=== PATIENT | female | born 1930 | race Caucasian/White ===

== ENCOUNTER 2019-07-26 08:01 | Inpatient (IN) ==
[2019-07-26] MEDS ORDERED: SODIUM CHLORIDE 0.9% 1,000 ML IV STA (08:32)
[2019-07-26 09:30] LABS: PT Patient Result 10.7 SECS (9.6-12.2); Partial Thromboplastin Time 26.1 SECS (20.8-36.0)
[2019-07-26 09:50] LABS: Albumin 3.3 G/DL (3.4-5.0); Bilirubin,Total 0.7 MG/DL (0.2-1.0); Calcium 9.2 MG/DL (8.5-10.1); Osmolality,Calculated 265.5 MOS/KG (273-304); Total Protein 7.7 G/DL (6.4-8.3)
[2019-07-26] MEDS ORDERED: methylPREDNISolone SOD SUC 125 MG/2 ML VIAL IV STA (10:00)
[2019-07-26 10:14] LABS: Apearance,Urine CLEAR (Clear); Bacteria,Urine Occasional /HPF (Few); Bilirubin,Urine Negative (Negative); Blood, Urine Negative (Negative); Glucose,Urine (UA) Negative (Negative); Ketones,Urine Negative (Negative); Mucus,Urine Occasional /LPF (Occasional); Nitrite,Urine Negative (Negative); Protein,Urine Negative; RBC,Urine 1 /HPF (0-4); Squamous Epithelial Cell,Urine Occasional /HPF (0-10); Urine Color Yellow (Yellow); Urine Urobilinogen < 2.0 EU/DL (0.2-1.0); WBC,Urine 1 /HPF (0-6)
[2019-07-26] MEDS ORDERED: guaiFENesin/DM ER 600-30 MG TABLET PO PRN (10:35)
[2019-07-26] MEDS ORDERED: ACETAMINOPHEN 325 MG TABLET PO PRN (10:35)
[2019-07-26] MEDS ORDERED: ONDANSETRON 4 MG/2 ML VIAL IV PRN (10:35)
[2019-07-26 11:24] LABS: Risk Ratio 2.83; Thyroid Stimulating Hormone 0.621 uIU/ml (0.358-3.74); VLDL CHOLESTEROL 23.4 MG/DL
[2019-07-26] MEDS: ENOXAPARIN 30 MG/0.3 ML SYRINGE SUBCUT SCH (12:30)
[2019-07-26] MEDS: SODIUM CHLORIDE 0.9% 1,000 ML IV SCH (12:31)
[2019-07-26] MEDS: NYSTATIN 500,000 UNIT/5 ML UDCUP SWISH/SWAL SCH ×3 (12:31→20:57)
[2019-07-26] MEDS: AZITHROMYCIN INJ 500 MG in SODIUM CHLORIDE 0.9% 250 ML IV SCH (12:32)
[2019-07-26 12:51] LABS: Basophils % 0.3 % (0.0-0.8); Hematocrit 30.2 VOL% (35.7-47.0); Hemoglobin 10.1 GM/DL (12.0-16.0); Immature Granulocytes % 0.4 %; Immature Granulocytes Absolute 0.05 #; Lymphocytes # 0.3 10*3/uL (1.4-4.0); Lymphocytes % 2.9 % (21.3-54.2); Mean Corpuscular HGB Conc 33.4 GM/DL (32-36); Mean Corpuscular Volume 94.1 FL (87-102); Mean Platelet Volume 8.4 FL (9.6-12.0); Monocytes % 4.6 % (1.7-12.7); Neutrophils % 91.8 % (38.7-73.9); Platelet Count 331 T/CUMM (130-400); Red Blood Count 3.21 MC/CUMM (3.8-5.5); Red Cell Distribution Width 12.7 % (9.3-17.3); White Blood Count 11.8 T/CUMM (4-12)
[2019-07-26 13:20] LABS: Anisocytosis 2+; Band Neutrophils 21 % (0-10); Lymphocytes 1 % (20-55); Platelet Estimate Normal; Poikilocytosis Slight; Segmented Neutrophils 76 % (50-85); Total Cells Counted 100
[2019-07-26] MEDS: ALBUTEROL/IPRATROPIUM 3 ML NEB RESP TX SCH ×2 (13:58→19:14)
[2019-07-26] MEDS: LACTOBACILLUS ACIDOPHILUS/BULGARICUS CAPLET PO SCH (16:46)
[2019-07-26] MEDS: MULTIVITAMIN (BEROCCA) TABLET PO SCH (16:46)
[2019-07-27] MEDS: ALBUTEROL/IPRATROPIUM 3 ML NEB RESP TX SCH ×4 (00:38→20:00)
[2019-07-27 05:31] LABS: Hematocrit 29.9 VOL% (35.7-47.0); Hemoglobin 9.9 GM/DL (12.0-16.0); Immature Granulocytes % 0.4 %; Immature Granulocytes Absolute 0.04 #; Lymphocytes # 0.3 10*3/uL (1.4-4.0); Lymphocytes % 3.1 % (21.3-54.2); Mean Corpuscular HGB Conc 33.1 GM/DL (32-36); Mean Corpuscular Volume 94.6 FL (87-102); Mean Platelet Volume 8.5 FL (9.6-12.0); Monocytes % 3.3 % (1.7-12.7); Neutrophils % 93.2 % (38.7-73.9); Platelet Count 295 T/CUMM (130-400); Red Blood Count 3.16 MC/CUMM (3.8-5.5); Red Cell Distribution Width 12.7 % (9.3-17.3); White Blood Count 9.7 T/CUMM (4-12)
[2019-07-27 05:58] LABS: Calcium 8.1 MG/DL (8.5-10.1); Osmolality,Calculated 271.1 MOS/KG (273-304)
[2019-07-27 06:10] LABS: Band Neutrophils 2 % (0-10); Lymphocytes 3 % (20-55); Segmented Neutrophils 94 % (50-85); Total Cells Counted 100
[2019-07-27 06:11] LABS: Anisocytosis 1+; Ovalocytes Few; Platelet Estimate Normal
[2019-07-27] MEDS: SODIUM CHLORIDE 0.9% 1,000 ML IV SCH (06:24)
[2019-07-27] MEDS ORDERED: POTASSIUM CHLORIDE RIDER 10 MEQ in PREMIX 1 EACH IV PRN (06:50)
[2019-07-27] MEDS ORDERED: POTASSIUM CHLORIDE INJ 50 MEQ in SODIUM CHLORIDE 0.9% 500 ML IV ONE (09:00)
[2019-07-27] MEDS: LACTOBACILLUS ACIDOPHILUS/BULGARICUS CAPLET PO SCH (09:15)
[2019-07-27] MEDS: PANTOPRAZOLE 40 MG TABLET PO SCH (09:15)
[2019-07-27] MEDS: MULTIVITAMIN (BEROCCA) TABLET PO SCH (09:16)
[2019-07-27] MEDS: AZITHROMYCIN INJ 500 MG in SODIUM CHLORIDE 0.9% 250 ML IV SCH (09:16)
[2019-07-27] MEDS: NYSTATIN 500,000 UNIT/5 ML UDCUP SWISH/SWAL SCH ×4 (09:16→20:47)
[2019-07-27] MEDS ORDERED: diphenhydrAMINE 25 MG/10 ML UDCUP PO PRN (09:49)
[2019-07-27] MEDS: ENOXAPARIN 30 MG/0.3 ML SYRINGE SUBCUT SCH (12:18)
[2019-07-27] MEDS: BENZONATATE 100 MG CAPSULE PO SCH ×2 (12:18→20:47)
[2019-07-27] MEDS: MEROPENEM 500 MG in SODIUM CHLORIDE 0.9% 100 ML IV SCH ×2 (12:18→18:12)
[2019-07-27] MEDS: METOPROLOL TARTRATE 25 MG TABLET PO SCH (20:47)
[2019-07-28] MEDS: ALBUTEROL/IPRATROPIUM 3 ML NEB RESP TX SCH ×4 (00:28→20:55)
[2019-07-28] MEDS: SODIUM CHLORIDE 0.9% 1,000 ML IV SCH ×2 (01:41→06:50)
[2019-07-28] MEDS: MEROPENEM 500 MG in SODIUM CHLORIDE 0.9% 100 ML IV SCH ×3 (02:46→18:02)
[2019-07-28 04:33] LABS: Basophils % 0.1 % (0.0-0.8); Eosinophils % 0.1 % (0.00-10.9); Hematocrit 28.6 VOL% (35.7-47.0); Hemoglobin 9.5 GM/DL (12.0-16.0); Immature Granulocytes % 1.4 %; Immature Granulocytes Absolute 0.22 #; Lymphocytes # 0.3 10*3/uL (1.4-4.0); Lymphocytes % 2.1 % (21.3-54.2); Mean Corpuscular HGB Conc 33.2 GM/DL (32-36); Mean Corpuscular Volume 94.1 FL (87-102); Mean Platelet Volume 8.4 FL (9.6-12.0); Monocytes % 7.6 % (1.7-12.7); Neutrophils % 88.7 % (38.7-73.9); Platelet Count 281 T/CUMM (130-400); Red Blood Count 3.04 MC/CUMM (3.8-5.5); White Blood Count 16.3 T/CUMM (4-12)
[2019-07-28 04:59] LABS: Calcium 7.7 MG/DL (8.5-10.1)
[2019-07-28 05:35] LABS: Lymphocytes 1 % (20-55); Ovalocytes Few; Platelet Estimate Normal; Segmented Neutrophils 95 % (50-85); Total Cells Counted 100
[2019-07-28 05:37] LABS: Polychromasia Slight
[2019-07-28 05:38] LABS: Stomatocytes Slight
[2019-07-28] MEDS: POTASSIUM CHLORIDE 20 MEQ TABLET PO PRN ×3 (06:36→13:18)
[2019-07-28] MEDS ORDERED: DILTIAZEM CD 180 MG CAPSULE PO ONE (08:12)
[2019-07-28] MEDS ORDERED: FUROSEMIDE 40 MG/4 ML VIAL IV ONE (08:13)
[2019-07-28] MEDS: LACTOBACILLUS ACIDOPHILUS/BULGARICUS CAPLET PO SCH (08:37)
[2019-07-28] MEDS: MULTIVITAMIN (BEROCCA) TABLET PO SCH (08:37)
[2019-07-28] MEDS: ATORVASTATIN 10 MG TABLET PO SCH (08:38)
[2019-07-28] MEDS: ASPIRIN EC 81 MG TABLET PO SCH (08:38)
[2019-07-28] MEDS: CHOLECALCIFEROL 1,000 UNIT TABLET PO SCH (08:38)
[2019-07-28] MEDS: POTASSIUM CHLORIDE 10 MEQ TABLET PO SCH (08:39)
[2019-07-28] MEDS: PANTOPRAZOLE 40 MG TABLET PO SCH (08:39)
[2019-07-28] MEDS: METOPROLOL TARTRATE 25 MG TABLET PO SCH ×2 (08:39→20:45)
[2019-07-28] MEDS: BENZONATATE 100 MG CAPSULE PO SCH ×2 (08:39→20:46)
[2019-07-28] MEDS: NYSTATIN 500,000 UNIT/5 ML UDCUP SWISH/SWAL SCH ×4 (08:40→20:45)
[2019-07-28] MEDS ORDERED: hydroCHLOROthiazide 12.5 MG CAPSULE PO SCH (09:00)
[2019-07-28] MEDS ORDERED: LOSARTAN 50 MG TABLET PO SCH (09:00)
[2019-07-28] MEDS ORDERED: DILTIAZEM CD 240 MG CAPSULE PO SCH ×2 (09:00→21:00)
[2019-07-28] MEDS: methylPREDNISolone SOD SUC 40 MG/1 ML VIAL IV SCH ×2 (11:30→20:47)
[2019-07-28] MEDS: ENOXAPARIN 30 MG/0.3 ML SYRINGE SUBCUT SCH (11:31)
[2019-07-28] MEDS: busPIRone 5 MG TABLET PO SCH ×2 (15:25→20:46)
[2019-07-29] MEDS: ALBUTEROL/IPRATROPIUM 3 ML NEB RESP TX SCH ×3 (01:41→14:15)
[2019-07-29] MEDS: MEROPENEM 500 MG in SODIUM CHLORIDE 0.9% 100 ML IV SCH (03:04)
[2019-07-29 05:19] LABS: Basophils % 0.1 % (0.0-0.8); Hematocrit 26.5 VOL% (35.7-47.0); Hemoglobin 8.7 GM/DL (12.0-16.0); Immature Granulocytes Absolute 0.19 #; Lymphocytes # 0.4 10*3/uL (1.4-4.0); Lymphocytes % 1.9 % (21.3-54.2); Mean Corpuscular HGB Conc 32.8 GM/DL (32-36); Mean Platelet Volume 8.8 FL (9.6-12.0); Monocytes % 3.8 % (1.7-12.7); Neutrophils % 93.2 % (38.7-73.9); Platelet Count 323 T/CUMM (130-400); Red Blood Count 2.79 MC/CUMM (3.8-5.5); Red Cell Distribution Width 13.1 % (9.3-17.3); White Blood Count 19.2 T/CUMM (4-12)
[2019-07-29] MEDS ORDERED: guaiFENesin/CODEINE 5 ML LIQUID PO PRN (05:19)
[2019-07-29] MEDS ORDERED: MORPHINE 4 MG/1 ML VIAL IV PRN (05:20)
[2019-07-29 05:39] LABS: Calcium 8.6 MG/DL (8.5-10.1); Osmolality,Calculated 275.5 MOS/KG (273-304)
[2019-07-29 06:28] LABS: Anisocytosis 2+; Hypochromasia 1+; Lymphocytes 3 % (20-55); Macrocytosis 1+; Microcytosis 1+; Ovalocytes 1+; Polychromasia 1+; Segmented Neutrophils 97 % (50-85); Total Cells Counted 100
[2019-07-29 06:29] LABS: Platelet Estimate Adequate
[2019-07-29] MEDS ORDERED: DILTIAZEM CD 240 MG CAPSULE PO SCH (09:00)
[2019-07-29] MEDS ORDERED: predniSONE 10 MG TABLET PO SCH (09:00)
[2019-07-29] MEDS: busPIRone 5 MG TABLET PO SCH (09:44)
[2019-07-29] MEDS: BENZONATATE 100 MG CAPSULE PO SCH (09:44)
[2019-07-29] MEDS: NYSTATIN 500,000 UNIT/5 ML UDCUP SWISH/SWAL SCH ×2 (09:47→14:15)
[2019-07-29] MEDS ORDERED: MEROPENEM 500 MG in SODIUM CHLORIDE 0.9% 100 ML IV SCH (11:00)
[2019-07-29] MEDS ORDERED: ENOXAPARIN 40 MG/0.4 ML SYRINGE SUBCUT SCH (12:00)
[2019-07-29] MEDS: CHOLECALCIFEROL 1,000 UNIT TABLET PO SCH (12:39)
[2019-07-29] MEDS: LACTOBACILLUS ACIDOPHILUS/BULGARICUS CAPLET PO SCH (12:39)
[2019-07-29] MEDS: ASPIRIN EC 81 MG TABLET PO SCH (12:39)
[2019-07-29] MEDS: PANTOPRAZOLE 40 MG TABLET PO SCH (12:39)
[2019-07-29] MEDS: METOPROLOL TARTRATE 25 MG TABLET PO SCH (12:39)
[2019-07-29] MEDS: ATORVASTATIN 10 MG TABLET PO SCH (12:39)
[2019-07-29] MEDS: MULTIVITAMIN (BEROCCA) TABLET PO SCH (12:39)
[2019-07-29] MEDS: POTASSIUM CHLORIDE 10 MEQ TABLET PO SCH (12:39)
[2019-07-29 14:13] VITALS: BP 98/59
[2019-07-30] MEDS ORDERED: AZITHROMYCIN 250 MG TABLET PO SCH (09:00)
== END 2019-07-29 11:46 | disposition expired | DRG 196 ==
LOC: N.ED 08:01 → N.EDINP 10:35 → N.2E 11:46
PROVIDERS: ADMIT Hospitalist; ATTEND Hospitalist